=== PATIENT | female | born 1955 | race Caucasian/White ===

== ENCOUNTER 2016-10-31 06:03 | Day surgery (SDC) | payer OTHER ==
[~2016-10-31] VITALS: Ht 154.9 cm; Wt 65.8 kg
[~2016-10-31 06:03] MED LIST: GABA300C16 PO; NAPR-688 PO
[2016-10-31 06:32] VITALS: Ht 154.9 cm; Wt 65.8 kg
[2016-10-31] MEDS ORDERED: OMEP20CA16 PO (06:41)
[2016-10-31 07:21] VITALS: BP 107/56; PULSE 58; RESP 18
[2016-10-31 08:00] VITALS: BP 101/57; RESP 20
[2016-10-31] MEDS ORDERED: FENTAnyl 50 MCG/ML VIAL ONE (08:18)
[2016-10-31] MEDS ORDERED: MIDAZOLAM 1 MG/ML 2 ML INJ ONE (08:18)
--- NOTE | 2016-10-31 08:44 | CONS ---
DATE OF ADMISSION: 10/31/2016 DATE OF CONSULTATION: Dear Dr. Devine: I thank you very much for this kind referral. HISTORY OF PRESENT ILLNESS: Ms. Sinai Colvin is a 61-year-old female patient who has been referred to [facility] for further evaluation of upper abdominal pain associated with bloating. Patient has been taking omeprazole without relief. The patient is status post Helicobacter pylori therapy with antibiotics. There is no past history of peptic ulcer disease. Her appetite has been good, and there is no his tory of significant weight loss. She has been taking naproxen for osteoarthritis and fibromyalgia. The patient had abdominal ultrasound and she was noted to have fatty liver. There is no history of gallstones. She does not have any fever, chills or jaundice. The patient had a colonoscopy 2 year s ago and she was noted to have hemorrhoids. No colon neoplasm was identified. The patient is comp laining of rectal pain. She is not a hypertensive or diabetic. She does not have any heart disease or lung problem. There is no history of kidney disease. She is status post surgery for ovarian cy st. SOCIAL HISTORY: She is a smoker. She denies alcohol abuse. FAMILY HISTORY: Negative for gastrointestinal tract neoplasm. ALLERGIES: THERE IS NO HISTORY OF SIGNIFICANT DRUG ALLERGY. MEDICATIONS: 1. Omeprazole. 2. Naproxen. PHYSICAL EXAMINATION: VITAL SIGNS: She is 5 feet 2 inches tall and she weighs 140 pounds. HEART: Examination of the heart reveals normal first and second heart sounds. LUNGS: Clear. ABDOMEN: Soft without any distention. Liver and spleen are not palpable. There are no masses. Th ere is no focal tenderness. Normal bowel sounds are heard. CENTRAL NERVOUS SYSTEM: Does not reveal any focal neurological deficit. IMPRESSION: 1. Upper abdominal pain associated with bloating not responding to therapy with omeprazole. 2. Status post antibiotic therapy for Helicobacter pylori infection. 3. The patient has been taking naproxen. 4. The patient had colonoscopy 2 years ago and she was noted to have hemorrhoids. 5. She complains of rectal pain. 6. Osteoarthritis. 7. Fibromyalgia. 8. Status post surgery for ovarian cyst. 9. The patient is an occasional smoker. PLAN: 1. Continue omeprazole. 2. The patient was advised to stop smoking. 3. Endoscopic examination for further evaluation. 4. The patient was advised to lose weight and have good control of serum lipase because of the fatt y liver. The procedure and possible complications are well explained to the patient. She understands and con sents to the procedure. I thank you once again. With warmest personal regards, Dictated By: NEREIDA DURHAM/LISBETH Conf#: [id number] DID#: [id number] CC: NEREIDA ELDER MD;*EndCC*
--- NOTE | 2016-10-31 14:10 | GILP ---
DATE OF PROCEDURE: NAME OF PROCEDURE: Esophagogastroduodenoscopy and biopsy. SURGEON: Nereida Metaclf MD PREOPERATIVE DIAGNOSIS: Abdominal pain. POSTOPERATIVE DIAGNOSES: 1. Gastritis. 2. Gastric mucosal biopsies were positive for Helicobacter pylori infection. INDICATION FOR THE PROCEDURE: Ms. Sinai Colvin is a 61-year-old female patient who was complaining of u pper abdominal pain, not responding to therapy. The patient was scheduled for endoscopic examinatio n for further evaluation. The procedure and possible complications are well explained to the patient. She understood and cons ented to the procedure. DESCRIPTION OF PROCEDURE: Under the influence of fentanyl and Versed, the gastroscope was carefully introduced into the esophagus and under direct vision, it was advanced to the stomach and through t he pylorus into the duodenal bulb and descending duodenum. FINDINGS: ESOPHAGUS: The mucosa was normal. STOMACH: The patient had gastritis. Gastric mucosal biopsies were taken for H pylori test. Duoden um was normal. The H pylori test was positive. She tolerated the procedure very well, and there was no complication from the procedure. At the end of the procedure, she was awake with stable vital signs and she was discharged home to the care of her family. IMPRESSION: 1. Gastritis. 2. Gastric mucosal biopsies of positive for Helicobacter pylori infection. PLAN: 1. Zantac 300 mg p.o. b.i.d. 2. Doxycycline 100 mg p.o. b.i.d. 3. Flagyl 500 mg p.o. b.i.d. 4. Pepto-Bismol 2 tablets p.o. q.i.d. All these 4 medications for 14 days for H pylori infection. Dictated By: NEREIDA DURHAM/LISBETH Conf#: [id number] DID#: [id number]
== END 2016-10-31 09:54 | disposition home or self-care (01) ==
LOC: GIL 06:03
PROVIDERS: ATTEND Internal Medicine Gastroenterology
DX: K29.70 Gastritis, unspecified, without bleeding (principal); B96.81 Helicobacter pylori [H. pylori] as the cause of diseases classified elsewhere; F17.200 Nicotine dependence, unspecified, uncomplicated; M19.90 Unspecified osteoarthritis, unspecified site; K62.89 Other specified diseases of anus and rectum
CPT/HCPCS: 43239; 87081; J2250; J3010; Z7610

== ENCOUNTER 2018-03-19 06:26 | Day surgery (SDC) | END 2018-03-19 11:46 | disposition home or self-care (01) ==

== ENCOUNTER 2018-12-11 08:51 | Day surgery (SDC) | payer OTHER ==
[~2018-12-11] VITALS: Ht 154.9 cm; Wt 64.1 kg
[~2018-12-11 08:51] MED LIST changes: +AMITRIPTYLINE PO; +ASPI-817 PO; +IBUPROFEN PO; -NAPR-688 PO; +OMEP20CA16 PO; +ZANTAC PO
[2018-12-11 09:58] VITALS: Ht 154.9 cm; Wt 64.1 kg
[2018-12-11] MEDS ORDERED: ACETAMINOPHEN (10:03)
[2018-12-11] MEDS ORDERED: FLONASE (10:03)
--- NOTE | 2018-12-11 10:07 | PREAC ---
Date/Time of Note Date/Time of Note DATE: 12/11/18 TIME: 10:05 Anesthesia Eval and Record Evaluation Time Pre-Procedure Interview DATE: 12/11/18 TIME: 10:05 Age 63 Sex female NPO: 8 hrs Preoperative diagnosis change in bowel habits Planned procedure colonoscopy Past Medical History Past Medical History: Includes Neuro: Other (migraines) GI: GERD Surgery & Anesthesia Issues No known issue Meds Anticoagulation: No Beta Jacquelyn within 24 hr: No Reason Beta Jacquelyn not given: Pt. not on B-Jacquelyn Reported Medications [Acetaminopen] No Conflict Check 12/11/18 [Flonase] No Conflict Check 12/11/18 [Ibuprofen] No Conflict Check, PO 03/19/18 Omeprazole* (Omeprazole*) 20 Mg Capsule.dr, 20 MG PO DAILY, #30 CAP 10/31/16 Gabapentin* (Gabapentin*) 300 Mg Capsule, 300 MG PO BID, CAP 11/30/14 Discontinued Reported Medications [Amitriptyline] No Conflict Check, PO 03/19/18 [Zantac] No Conflict Check, PO 03/19/18 Aspirin* (Aspirin* EC) 81 Mg Tablet.dr, 81 MG PO DAILY, TAB 03/19/18 Meds reviewed: Yes Allergies Coded Allergies: No Known Allergy (Unverified , 12/11/18) Allergies Reviewed: Yes Labs/Studies Labs Reviewed: Reviewed by anesthesiologist test: N/A Pre-procedure Exam Airway: Adequate mouth opening, Adequate thyromental dist Mallampati: Mallampati II Teeth: Normal Lung: Normal Heart: Normal ASA Physical Status ASA physical status: 2 Emergency: None Planned Anesthetic General/MAC: Mask Planned Pain Management Parenteral pain med Pre-operative Attestations Prior to commencing anesthesia and surgery, the patient was re-evaluated, there was verification of: *The patient's identity *The results of appropriate recent lab work and preoperative vital signs *The above evaluation not changing prior to induction *Anesthetic plan, risk benefits, alternative and complications discussed with patient/family; questions answered; patient/family understands, accepts and wishes to proceed. 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
[2018-12-11] MEDS ORDERED: LIDOCAINE 2% (SDV) 5 ML INJ ONE (10:09)
[2018-12-11] MEDS ORDERED: PROPOFOL 40 ML ONE (10:09)
[2018-12-11 10:16] VITALS: BP 132/61; PULSE 72; RESP 31
[2018-12-11 10:28] VITALS: BP 132/61; PULSE 74; RESP 28
[2018-12-11] MEDS ORDERED: ONDANSETRON 4 MG INJ IV PRN (10:30)
[2018-12-11 10:52] VITALS: BP 103/55; PULSE 65; RESP 18
--- NOTE | 2018-12-11 11:00 | PAC ---
Date/Time of Note Date/Time of Note DATE: 12/11/18 TIME: 10:58 Post-Anesthesia Notes Post-Anesthesia Note Last documented vital signs Vital Signs Date Temp Pulse Resp B/P (MAP) Pulse Ox O2 O2 Flow FiO2 Time Delivery Rate 12/11/18 74 28 132/61 99 Room Air 10:28 (84) 12/11/18 98.6 10:16 Activity: WNL Respiratory function: WNL Cardiovascular function: WNL Mental status: Baseline Pain reasonably controlled: Yes Hydration appropriate: Yes Nausea/Vomiting absent: Yes Comments BP: 120/65 HR: 80 RR: 15 T: 98 SaO2: 100% VANDANA LAGUERRE MD Dec 11, 2018 11:00
== END 2018-12-11 11:37 | disposition home or self-care (01) ==
LOC: GIL 08:51
PROVIDERS: ATTEND Internal Medicine Gastroenterology
DX: R19.4 Change in bowel habit (principal); K57.30 Diverticulosis of large intestine without perforation or abscess without bleeding
CPT/HCPCS: 45378; Z7610

== ENCOUNTER 2019-04-18 06:53 | Day surgery (SDC) | payer OTHER ==
[~2019-04-18] VITALS: Ht 157.5 cm; Wt 66.5 kg
[~2019-04-18 06:53] MED LIST changes: +ACETAMINOPHEN; +ALBUTEROL; -AMITRIPTYLINE PO; -ASPI-817 PO; +ASPI-903 PO; +FLONASE; -ZANTAC PO
[2019-04-18 07:50] VITALS: Ht 157.5 cm; Wt 66.5 kg
[2019-04-18 07:56] VITALS: BP 120/58; PULSE 60; RESP 18
[2019-04-18] MEDS ORDERED: LIDOCAINE 4% SOLUTION 50 ML BTL ONE (08:37)
[2019-04-18] MEDS ORDERED: MIDAZOLAM 1 MG/ML 2 ML INJ ONE ×2 (09:21)
[2019-04-18] MEDS ORDERED: FENTAnyl 50 MCG/ML VIAL ONE (09:21)
[2019-04-18 09:40] VITALS: BP 122/62; PULSE 63; RESP 18
== END 2019-04-18 14:25 | disposition home or self-care (01) ==
LOC: GIL 06:53
PROVIDERS: ATTEND Internal Medicine Gastroenterology
DX: K29.50 Unspecified chronic gastritis without bleeding (principal)
CPT/HCPCS: 43239; J2250; J3010; Z7610; 88305; 88312